=== PATIENT | male | born 1960 | race Caucasian/White ===

== ENCOUNTER → 2022-09-04 | Outpatient (CLI) | payer OTHER ==
[2022-09-04 10:56] LABS: HEMATOCRIT 42.6 % (42.0-52.0); MEAN CORPUSCULAR HEMOGLOBIN 30.9 pg (27.0-33.0); MEAN CORPUSCULAR HGB CONC 32.9 g/dl (32.0-36.5); PLATELET COUNT, AUTOMATED 244 10^3/uL (150-450); RED BLOOD COUNT 4.53 10^6/uL (4.30-6.10); WHITE BLOOD COUNT 4.7 10^3/uL (4.0-10.0)
[2022-09-04 11:15] LABS: CREATININE, URINE 73.6 MG/DL
[2022-09-04 11:16] LABS: MALB URINE SIEMENS < 3.0 MG/L
[2022-09-04 11:23] LABS: HEMOGLOBIN A1c 4.9 % (4.0-6.0)
[2022-09-04 11:24] LABS: C REACTIVE PROTEIN QUANTITATIV < 0.40 MG/DL (<1.0)
[2022-09-04 11:26] LABS: ALBUMIN 3.9 G/DL (3.2-5.2); ALKALINE PHOSPHATASE 59 U/L (46-116); ALT/SGPT 27 U/L (7.0-40); AST/SGOT 31 U/L (<34); BILIRUBIN,TOTAL 0.5 MG/DL (0.3-1.2); BLOOD UREA NITROGEN 12 MG/DL (9-23); CALCIUM LEVEL 9.2 MG/DL (8.3-10.6); CARBON DIOXIDE LEVEL 28 MMOL/L (20-31); CHLORIDE LEVEL 103 MMOL/L (98-107); CHOLESTEROL LEVEL 188 MG/DL (<200); CHOLESTEROL RISK RATIO 3.21 (<5); CREATININE FOR GFR 0.86 MG/DL (0.70-1.30); FREE T4 1.08 NG/DL (0.89-1.76); GLOMERULAR FILTRATION RATE > 60.0 (>49); GLUCOSE, FASTING 81 MG/DL (74-106); HDL CHOLESTEROL 58.4 MG/DL (>40); LDL CHOLESTEROL 106.8 MG/DL (<100); NON-HDL-C 129.6 MG/DL; POTASSIUM SERUM 4.9 MMOL/L (3.5-5.1); SODIUM LEVEL 138 MMOL/L (136-145); THYROID STIMULATING HORMONE 1.556 uIU/ML (0.55-4.78); TOTAL PROTEIN 6.9 G/DL (5.7-8.2); TRIGLYCERIDES LEVEL 114 MG/DL (<150)
[2022-09-04 11:27] LABS: TOTAL 25(OH) VITAMIN D 44.6 NG/ML (20.0-100.0); VITAMIN B12 LEVEL 309 PG/ML (211-911)
== END ==
LOC: M PLALAB 08:53
PROVIDERS: ATTEND Internal Medicine Hematology
DX: Z13.1 Encounter for screening for diabetes mellitus (principal); Z12.5 Encounter for screening for malignant neoplasm of prostate
CPT/HCPCS: 36415; 80053; 80061; 82043; 82306; 82607; 83036; 83525; 84439; 84443; 85027; 86140; 90471; 90715; G0103; G0463

== ENCOUNTER → 2023-09-04 | Outpatient (CLI) | payer OTHER ==
[2023-09-04 09:49] LABS: BASO % 0.7 % (0.0-1.0); EOS # 0.1 10^3/uL (0.0-0.5); EOS % 2.9 % (0.0-3.0); HEMATOCRIT 42.8 % (42.0-52.0); HEMOGLOBIN 14.7 g/dl (13.5-17.5); LYMPH # 1.6 10^3/uL (1.5-5.0); LYMPH % 35.5 % (24.0-44.0); MEAN CORPUSCULAR HEMOGLOBIN 31.3 pg (27.0-33.0); MEAN CORPUSCULAR HGB CONC 34.3 g/dl (32.0-36.5); MEAN CORPUSCULAR VOLUME 91.1 fl (80.0-96.0); MONO # 0.5 10^3/uL (0.0-0.8); MONO % 11.2 % (2.0-8.0); NEUTROPHILS # 2.2 10^3/uL (1.5-8.5); NEUTROPHILS % 49.5 % (36.0-66.0); PLATELET COUNT, AUTOMATED 212 10^3/uL (150-450); WHITE BLOOD COUNT 4.5 10^3/uL (4.0-10.0)
[2023-09-04 10:18] LABS: C REACTIVE PROTEIN QUANTITATIV < 0.40 MG/DL (<1.0)
[2023-09-04 10:19] LABS: ALBUMIN 4.3 G/DL (3.2-5.2); ALKALINE PHOSPHATASE 62 U/L (46-116); ALT/SGPT 23 U/L (7.0-40); AST/SGOT 25 U/L (<34); BILIRUBIN,TOTAL 0.8 MG/DL (0.3-1.2); BLOOD UREA NITROGEN 18 MG/DL (9-23); CALCIUM LEVEL 9.5 MG/DL (8.3-10.6); CARBON DIOXIDE LEVEL 28 MMOL/L (20-31); CHLORIDE LEVEL 102 MMOL/L (98-107); CHOLESTEROL LEVEL 237 MG/DL (<200); CHOLESTEROL RISK RATIO 3.59 (<5); CREATININE FOR GFR 1.05 MG/DL (0.70-1.30); FREE T4 1.16 NG/DL (0.89-1.76); GLOMERULAR FILTRATION RATE > 60.0 (>49); GLUCOSE, FASTING 84 MG/DL (74-106); HDL CHOLESTEROL 65.9 MG/DL (>40); LDL CHOLESTEROL 157.3 MG/DL (<100); NON-HDL-C 171.1 MG/DL; POTASSIUM SERUM 4.9 MMOL/L (3.5-5.1); PSA SCREENING 0.89 NG/ML (< 4.00); SODIUM LEVEL 136 MMOL/L (136-145); THYROID STIMULATING HORMONE 1.903 uIU/ML (0.55-4.78); TOTAL 25(OH) VITAMIN D 40.6 NG/ML (20.0-100.0); TOTAL PROTEIN 7.2 G/DL (5.7-8.2); TRIGLYCERIDES LEVEL 69 MG/DL (<150); VITAMIN B12 LEVEL 492 PG/ML (211-911)
[2023-09-04 10:20] LABS: MAU/CREAT RATIO 5.9 MCG/MG (0.0-30.0)
== END ==
LOC: M PLALAB 07:52
PROVIDERS: ATTEND Internal Medicine Hematology
DX: Z12.5 Encounter for screening for malignant neoplasm of prostate (principal)

== ENCOUNTER 2024-04-28 11:27 | Day surgery (SDC) | payer MEDICARE, OTHER ==
[~2024-04-28] VITALS: Ht 177.8 cm; Wt 76.9 kg
[~2024-04-28 11:27] MED LIST: THERTAB52 PO
[2024-04-28] MEDS ORDERED: propofoL 200 MG/20 ML VIAL As Ordered ONE (12:31)
[2024-04-28 12:43] VITALS: TEMP 98.1
[2024-04-28 13:04] VITALS: BP 131/81; O2SAT 99
== END 2024-04-28 13:09 | disposition home or self-care (01) ==
LOC: M OPP 11:27
PROVIDERS: ATTEND Surgery
DX: Z12.11 Encounter for screening for malignant neoplasm of colon (principal); K57.30 Diverticulosis of large intestine without perforation or abscess without bleeding; Z87.891 Personal history of nicotine dependence; Z79.899 Other long term (current) drug therapy